=== PATIENT | male | born 1980 | race Caucasian/White ===

== ENCOUNTER 2019-09-12 04:37 | Emergency (ER) | payer OTHER ==
[2019-09-12 04:49] VITALS: RESP 18; TEMP 98.4
[2019-09-12] MEDS ORDERED: PROMETHAZINE 25 MG TAB PO STA (06:33)
[2019-09-12] MEDS ORDERED: DIPH,PERTUS(ACELL)TETVAC-LF 0.5 ML VIAL IM ONE (06:33)
--- NOTE | 2019-09-12 06:34 | ED ---
Skin/Abscess/FB HPI - General Chief complaint: Skin/Abscess/Foreign Body Stated complaint: Bug bite, nauseous Time Seen by Provider: 09/12/19 05:29 Source: patient Mode of arrival: ambulatory Limitations: no limitations - History of Present Illness MD complaint: insect bite/sting Onset/Timin -: hour(s) Tetanus Up to Date: no Location: L foot Severity: mild Quality: other Improves with: none Worsens with: none Context: none Associated symptoms: itching - Related Data Previous Rx's Medication Instructions Recorded Cephalexin [Keflex] 500 mg PO Q6HR #28 cap 09/12/19 Promethazine [Phenergan] 25 mg PO Q6HR PRN #12 tablet 09/12/19 Allergies Allergy/AdvReac Type Severity Reaction Status Date / Time No Known Allergies Allergy Verified 09/12/19 04:49 Review of Systems ROS Statement: Those systems with pertinent positive or pertinent negative responses have been documented in the HPI. ROS Other: All systems not noted in ROS Statement are negative. Constitutional: Denies: fever, chills Respiratory: Denies: cough, dyspnea Cardiovascular: Denies: palpitations Skin: Reports: as per HPI Past Medical History Past Medical History: No Reported History History of Any Multi-Drug Resistant Organisms: None Reported Additional Past Surgical History / Comment(s): wisdom teeth removal Past Psychological History: No Psychological Hx Reported Smoking Status: Never smoker Past Alcohol Use History: None Reported Past Drug Use History: None Reported General Exam Limitations: no limitations General appearance: alert, in no apparent distress Head exam: Present: atraumatic, normocephalic Eye exam: Present: normal appearance. Absent: scleral icterus, conjunctival injection ENT exam: Present: normal oropharynx Skin exam: Present: warm, dry, intact, normal color, other (The patient does have an approximately 2 cm wheal to the medial plantar aspect of the right foot with a tiny central puncture. No evidence of secondary infection.). Absent: rash Course Vital Signs 09/12/19 09/12/19 04:43 07:03 Temperature 98.4 F Pulse Rate 76 71 Respiratory 18 18 Rate Blood Pressure 124/85 127/93 O2 Sat by Pulse 97 98 Oximetry Disposition Clinical Impression: Insect bite Disposition: HOME SELF-CARE Condition: Good Instructions (If sedation given, give patient instructions): Insect Bite or Sting (ED) Prescriptions: Cephalexin [Keflex] 500 mg PO Q6HR #28 cap Promethazine [Phenergan] 25 mg PO Q6HR PRN #12 tablet PRN Reason: Vomiting Is patient prescribed a controlled substance at d/c from ED?: No Referrals: None,Stated [Primary Care Provider] - 1-2 days
[2019-09-12 07:04] VITALS: BP 127/93; PULSE 71
== END 2019-09-12 07:03 | disposition home or self-care (01) ==
LOC: EC 04:37
DX: S90.862A Insect bite (nonvenomous), left foot, initial encounter (principal); R11.0 Nausea; Z23 Encounter for immunization; W57.XXXA Bitten or stung by nonvenomous insect and other nonvenomous arthropods, initial encounter
CPT/HCPCS: 90471; 90715; 99283